=== PATIENT | male | born 1980 | race Caucasian/White ===

== ENCOUNTER 2020-02-26 16:43 | Outpatient (CLI) | payer OTHER ==
--- NOTE | 2020-02-26 18:51 | XRAY Report ---
PROCEDURE: Knee 3 View RT INDICATIONS: RT KNEE DISORDERS OF TENDON TECHNIQUE: 3 views of the right knee(s) were acquired. COMPARISON: None. FINDINGS: Bones: No fractures or dislocations. Mild medial femoral tibial compartment osteophytic changes are seen. No suspicious bony lesions. Soft tissues: Moderate amount of suprapatellar joint effusion is seen. No suspicious soft tissue calc ifications. IMPRESSION: No right knee fracture or dislocation. Mild medial femoral tibial compartment joint spac e narrowing. Moderate joint effusion. MRI of knee can be done for further evaluation of internal dera ngement if indicated. Reviewed by: Emigdio Estrada MD on 02/26/2020 5:50 PM AKST Approved by: Emigdio Estrada MD on 02/26/2020 5:50 PM AKST Station ID: [id number]
== END 2020-02-26 16:44 | disposition home or self-care (01) ==
LOC: DI 16:43
PROVIDERS: ATTEND Physician Assistant
DX: M25.861 Other specified joint disorders, right knee (principal); M25.461 Effusion, right knee

== ENCOUNTER 2022-12-20 06:55 | Outpatient (CLI) | payer OTHER ==
[2022-12-20 07:25] LABS: BASOPHILS # (AUTO) 0.1 10^3/uL (0.0-0.1); BASOPHILS % (AUTO) 1.2 %; EOSINOPHILS # (AUTO) 0.1 10^3/uL (0.0-0.7); EOSINOPHILS % (AUTO) 2.4 %; HCT - HEMATOCRIT 44.2 % (42.0-52.0); LYMPHOCYTES # (AUTO) 1.3 10^3/uL (1.5-3.5); MEAN CORPUSCULAR HEMOGLOBIN 31.7 pg (27.0-31.0); MEAN CORPUSCULAR HGB CONC 33.9 g/dL (32.0-36.0); MEAN CORPUSCULAR VOLUME 93.4 fL (80.0-94.0); MEAN PLATELET VOLUME 9.7 fL (7.4-11.4); MONOCYTES # (AUTO) 0.3 10^3/uL (0.0-1.0); MONOCYTES % (AUTO) 6.8 %; NEUTROPHILS # (AUTO) 2.4 10^3/uL (1.5-6.6); NEUTROPHILS % (AUTO) 57.4 %; PLT - PLATELET COUNT 188 10^3/uL (130-450); RED BLOOD COUNT 4.73 10^6/uL (4.70-6.10); RED CELL DISTRIBUTION WIDTH 11.9 % (12.0-15.0); WHITE BLOOD COUNT 4.1 x10^3/uL (4.8-10.8)
[2022-12-20 07:47] LABS: ALBUMIN 4.9 g/dL (3.2-5.5); ALBUMIN/GLOBULIN RATIO 2.1 (1.0-2.2); ALKALINE PHOSPHATASE 45 IU/L (42-121); ALT ALANINE AMINOTRANSFERASE 22 IU/L (10-60); AST ASPARTATE AMINOTRANSFERASE 26 IU/L (10-42); BILIRUBIN,TOTAL 0.6 mg/dL (0.2-1.0); BUN - BLOOD UREA NITROGEN 16 mg/dL (6-20); CALCIUM 9.8 mg/dL (8.5-10.3); CARBON DIOXIDE - CO2 28 mmol/L (21-32); CHLORIDE 103 mmol/L (101-111); CHOLESTEROL 184 mg/dL; CREATININE 1.2 mg/dL (0.6-1.3); GFR - MDRD 66 (>89); GLUCOSE 92 mg/dL (74-104); HDL CHOLESTEROL 62 mg/dL; LDL CHOLESTEROL,CALCULATED 99 mg/dL; LDL/HDL RATIO 1.6 (<3.6); POTASSIUM 3.7 mmol/L (3.5-4.5); SODIUM 138 mmol/L (135-145); TOTAL PROTEIN 7.2 g/dL (6.4-8.9); TRIGLYCERIDES 113 mg/dL (48-352); VLDL CHOLESTEROL 23 mg/dL
[2022-12-20 08:03] LABS: PROLACTIN 12.66 ng/mL
[2022-12-20 08:48] LABS: PSA TOTAL 0.839 ng/mL (0.000-2.000)
[2022-12-21 19:07] LABS: FREE TESTOSTERONE(DIRECT) 17.7 pg/mL (6.8-21.5)
== END 2022-12-20 06:56 | disposition home or self-care (01) ==
LOC: LAB 06:55
PROVIDERS: ATTEND Physician Assistant
DX: Z13.9 Encounter for screening, unspecified (principal); N52.9 Male erectile dysfunction, unspecified
CPT/HCPCS: 36415; 80053; 80061; 83721; 84146; 84153; 84402; 84403; 84443; 85025